=== PATIENT | female | born 1975 | race Caucasian/White ===

== ENCOUNTER 2020-02-04 03:10 | Emergency (ER) | payer OTHER ==
[~2020-02-04 03:10] MED LIST: 3IN1 COMMODE; ADVAIR 100-501 EACH INH; ATARAX25 MG PO; AUGMENTIN 875-1 EACH PO; AZITHROMYCIN250 MG PO; BENTYL10 MG PO; CARAFATE1 GM PO; COLESTID 1GM TAB1 GM PO; EPINEPHRIN0.3 MG/0.3 IM; FLEXERIL10 MG PO; HYDROXYZINE 10M10 MG PO; IBUPROFEN800 MG PO; LEVSIN-SL0.125 M1 SL; LEXAPRO 10MG TA10 MG PO; MONODOX100 MG PO; NEXIUM 40MG CAP40 MG PO; NORCO 5-325 TA1 EACH PO; ONDANSETRON ODT4 MG SL; OXYCODONE-ACET1 EAC1 PO; PREDNISONE 20MG20 MG PO; SKELAXIN800 MG PO; TESSALON PERLE100 MG PO; ZOFRAN4 MG PO; ZPAK PO
[2020-02-04 04:31] LABS: BILIRUBIN 1+ mg/dL (NEGATIVE); BLOOD NEGATIVE Ery/uL (NEGATIVE); CLARITY CLEAR (CLEAR); COLOR YELLOW (YELLOW); GLUCOSE (U) NORMAL (NORMAL); LEUKOCYTES NEGATIVE Leu/uL (NEGATIVE); NITRITE NEGATIVE (NEGATIVE); PROTEIN NEGATIVE (NEGATIVE); SPECIFIC GRAVITY >=1.030 (1.001-1.030); UROBILINOGEN 0.2 mg/dL (0.2-1.0); pH 5.5 (5.0-9.0)
[2020-02-04] MEDS ORDERED: ONDANSETRON ODT4 MG SL (05:49)
== END 2020-02-04 06:18 | disposition home or self-care (01) ==
LOC: FER 03:10
PROVIDERS: Emergency Medicine Emergency Medical Services
DX: N30.20 Other chronic cystitis without hematuria (principal); J44.9 Chronic obstructive pulmonary disease, unspecified; F17.210 Nicotine dependence, cigarettes, uncomplicated; Z88.1 Allergy status to other antibiotic agents; Z88.2 Allergy status to sulfonamides; Z88.8 Allergy status to other drugs, medicaments and biological substances; Z87.19 Personal history of other diseases of the digestive system
CPT/HCPCS: 81003; 87088; J0696; J2405; J7030